=== PATIENT | male | born 1955 | race Caucasian/White ===

== ENCOUNTER 2017-01-15 07:23 | Day surgery (SDC) | payer OTHER ==
[~2017-01-15] VITALS: Ht 188 cm; Wt 146.5 kg
[~2017-01-15 07:23] MED LIST: ALL DAY10 MG PO; AMLODIPINE5 MG PO; DIAZEPAM10 MG; DOXYCYCLINE HY100 MG PO; DURAGESIC75 MCG/H1 TD; FENTANYL25 MCG/HR TD; FENTANYL50 MCG/HR TD; FENTANYL75 MCG/HR TD; FLONASE NASAL50 MCG; NORCO1 TAB; OXYCODONE HCL15 MG PO; OXYCODONE15 MG PO; PRILOSEC20 MG PO; RYBIX ODT50 MG; UNKNOWN BP MED; VOLTAREN1%GEL TOP
[2017-01-15] MEDS ORDERED: OXYCODONE15 MG PO (09:16)
[2017-01-15] MEDS ORDERED: DURAGESIC75 MCG/H1 TD (09:16)
[2017-01-15 09:56] VITALS: BP 120/66
== END 2017-01-15 09:50 | disposition home or self-care (01) | DRG 552 ==
LOC: ORM 07:23
PROVIDERS: ATTEND Anesthesiology Pain Medicine
PROC: 3E0R33Z Introduction of Anti-inflammatory into Spinal Canal, Percutaneous Approach (ICD-10-PCS; principal; 2017-01-15)
DX: M48.02 Spinal stenosis, cervical region (principal); M54.12 Radiculopathy, cervical region
CPT/HCPCS: Q9967

== ENCOUNTER 2017-02-05 06:54 | Day surgery (SDC) | payer OTHER ==
[~2017-02-05] VITALS: Ht 188 cm; Wt 146.1 kg
[2017-02-05 11:18] VITALS: BP 119/86
== END 2017-02-05 10:08 | disposition home or self-care (01) | DRG 74 ==
LOC: ORM 06:54
PROVIDERS: ATTEND Anesthesiology Pain Medicine
PROC: 3E0T3BZ Introduction of Anesthetic Agent into Peripheral Nerves and Plexi, Percutaneous Approach (ICD-10-PCS; principal; 2017-02-05)
DX: M54.12 Radiculopathy, cervical region (principal); R51 Headache; Z53.8 Procedure and treatment not carried out for other reasons
CPT/HCPCS: Q9967

== ENCOUNTER → 2019-01-19 | Outpatient (REF) | payer OTHER ==
[~2019-01-19] MED LIST changes: +ALLERGY10 M1 PO; +MEDDOSEPAK PO; +TAMSULOSIN HCL0.4 MG PO
[2019-01-19 10:40] VITALS: BP 157/103
== END | disposition home or self-care (01) | DRG 951 ==
LOC: PAIN/MGT 10:25
PROVIDERS: ATTEND Anesthesiology Pain Medicine
DX: Z09 Encounter for follow-up examination after completed treatment for conditions other than malignant neoplasm (principal)

== ENCOUNTER 2019-04-21 06:46 | Day surgery (SDC) | payer OTHER ==
[~2019-04-21] VITALS: Ht 188 cm; Wt 146.1 kg
[2019-04-21 08:18] VITALS: BP 143/87
[2019-04-21] MEDS ORDERED: DURAGESIC75 MCG/H1 TD (08:27)
[2019-04-21] MEDS ORDERED: OXYCODONE15 MG PO (08:29)
[2019-04-21] MEDS ORDERED: FENTANYL25 MCG/HR TOP (08:55)
[2019-04-21] MEDS ORDERED: OXYCODONE HCL15 MG PO (08:55)
== END 2019-04-21 08:50 | disposition home or self-care (01) ==
LOC: ORM 06:46
PROVIDERS: ATTEND Anesthesiology Pain Medicine
DX: M54.2 Cervicalgia (principal); M48.02 Spinal stenosis, cervical region

== ENCOUNTER 2020-05-03 06:00 | Day surgery (SDC) | payer OTHER ==
[~2020-05-03] VITALS: Ht 188 cm; Wt 103.4 kg
[~2020-05-03 06:00] MED LIST changes: +FENTANYL25 MCG/HR TOP
[2020-05-03] MEDS ORDERED: DURAGESIC75 MCG/H1 TD (07:43)
[2020-05-03] MEDS ORDERED: OXYCODONE15 MG PO (07:44)
[2020-05-03 08:26] VITALS: BP 112/59
[2020-05-30] MEDS ORDERED: DURAGESIC75 MCG/H1 TD (12:37)
[2020-05-30] MEDS ORDERED: OXYCODONE15 MG PO (12:38)
[2020-06-27] MEDS ORDERED: DURAGESIC75 MCG/H1 TD (13:13)
[2020-06-27] MEDS ORDERED: OXYCODONE15 MG PO (13:14)
[2020-07-25] MEDS ORDERED: DURAGESIC75 MCG/H1 TD (13:12)
[2020-07-25] MEDS ORDERED: OXYCODONE15 MG PO (13:13)
[2020-08-22] MEDS ORDERED: DURAGESIC75 MCG/H1 TD (13:02)
[2020-08-22] MEDS ORDERED: OXYCODONE15 MG PO (13:03)
== END 2020-05-03 08:18 ==
LOC: ORM 06:00
PROVIDERS: ATTEND Anesthesiology Pain Medicine
DX: M12.9 Arthropathy, unspecified (principal); M54.2 Cervicalgia; Z01.84 Encounter for antibody response examination

== ENCOUNTER 2021-09-19 05:31 | Day surgery (SDC) | payer OTHER ==
[~2021-09-19] VITALS: Ht 188 cm; Wt 135.2 kg
[~2021-09-19 05:31] MED LIST changes: +CLARITIN-D1 TA4 PO; +TRAZODONE100 MG PO
[2021-09-19] MEDS ORDERED: NORVASC5 M1 PO (06:25)
[2021-09-19 07:48] VITALS: BP 125/71
[2021-09-27] MEDS ORDERED: FENTANYL75 MCG/HR TD (10:57)
[2021-09-27] MEDS ORDERED: OXYCODONE15 MG PO (10:58)
== END 2021-09-19 08:00 | disposition home or self-care (01) ==
LOC: ORM 05:31
PROVIDERS: ATTEND Anesthesiology Pain Medicine
DX: M54.16 Radiculopathy, lumbar region (principal); M48.061 Spinal stenosis, lumbar region without neurogenic claudication
CPT/HCPCS: Q9967

== ENCOUNTER 2021-10-24 06:05 | Day surgery (SDC) | payer OTHER ==
[~2021-10-24] VITALS: Ht 188 cm; Wt 132.4 kg
[~2021-10-24 06:05] MED LIST changes: +NORVASC5 M1 PO
[2021-10-24] MEDS ORDERED: FENTANYL75 MCG/HR TD (08:20)
[2021-10-24] MEDS ORDERED: OXYCODONE15 MG PO (08:21)
[2021-10-24 08:42] VITALS: BP 113/71
== END 2021-10-24 08:57 | disposition home or self-care (01) ==
LOC: ORM 06:05
PROVIDERS: ATTEND Anesthesiology Pain Medicine
DX: M54.16 Radiculopathy, lumbar region (principal)
CPT/HCPCS: Q9967